=== PATIENT | female | born 1945 | race Caucasian/White ===

== ENCOUNTER 2016-12-07 11:24 | Outpatient (CLI) | payer MEDICARE, BC ==
[~2016-12-07] VITALS: Ht 152.4 cm; Wt 100.9 kg
--- NOTE | ~2016-12-07 | HEMODYNAMI ---
PATIENT:GERALDO RICH MEDICAL RECORD: [id number] : 45 LOCATION:[facility] ADMISSION DATE: 12/07/16 Generatedon:12/07/201614:52 Patient name: GERALDO RICH Patient #: [id number] SSN: D OB: 1945 Date of study: 12/07/2016 Page: Of Hemodynamic Procedure Report Patient Data Patient Demographics Procedure consent was obtained First Name: GERALDO Gender: Female Last Name: HILARIO : 1945 Patient #: [id number] Age: 71 year(s) Race: Unknown Additional ID: [id number] Contact details Address: [address] [place] [address] State: [place] City: [place] Zip code: [address] Past Medical History Allergies Allergen Reaction Date Comments Reported Codeine 12/07/2016 Other allergy 12/07/2016 lorcet Admission Admission Data Admission Date: 12/07/2016 Admission Time: 11:24 Procedure Procedure Types Cath Procedure Diagnostic Procedure C [facility] w/Coronaries Miscellaneous Procedures Moderate Sedation up to 15 minutes Procedure Description Procedure Date Procedure Date: 12/07/2016 Procedure Start Time: 14:37 Procedure End Time: 14:52 Procedure Staff Name Function Zander Fried MD Performing Physician Evangelina Gordon RT Scrub Sav Browne RT Scrub Jay Rodriguez RN Nurse Lavern Masterson RT Monitor Freedom Baca RN Sleeve Presser Operator Procedure Data Cath Procedure Fluoroscopy Diagnostic fluoroscopy Total fluoroscopy Time: 2.1 time: 2.1 min min Diagnostic fluoroscopy Total fluoroscopy dose: 625 dose: 625 mGy mGy Contrast Material Contrast Material Type Amount (ml) Isovue 300 61 Entry Location Entry Primary Successful Side Size Upsize Upsize Entry Closure Vasques ccessful Closure Location (Fr) 1 (Fr) 2 (Fr) Remarks Device Remarks Radial Right 6 Fr Mechanical artery Short Compression Estimated blood loss: 5 ml Diagnostic catheters Device Type Used For End Catheter Placement Diagnostic Terumo 5Fr LV Angiography Nekoma 110cm catheter Diagnostic Terumo 5Fr Left Coronary Nekoma 110cm catheter Angiography Diagnostic Terumo 5Fr Right Coronary Nekoma 110cm catheter Angiography Procedure Complications No complications Procedure Medications Medication Administration Route Dosage 0.9% NaCl I.V. 100 ml/hr Oxygen NC 2 l/min Heparin Flush Bag added to field 2 bags (1000units/500ml NS) Versed 2 mg Fentanyl I.V. 100 mcg Radial Cocktail added to field 1 syringe (Verapomil 2mg/Nitro 400mcg/Heparin 1500units) Fentanyl I.V. 50 mcg Radial Cocktail I.A. 1 syringe (Verapomil 2mg/Nitro 400mcg/Heparin 1500units) Hemodynamics Rest Heart Rate: 84 (bpm) Pressure Samples Time Site Value (mmHg) Purpose Heart Use Rate(bpm) 14:42 LV 133/2,16 EDP 77 14:43 AO 100/56(72) Pullback 80 14:43 LV 122/-7,6 Pullback 80 Gradients Valve Time Site 1 Site 2 Mean SEP/DFP Peak To Heart Use (mmHg) (sec/min) Peak Rate (mmHg) (bpm) Aortic 14:43 LV AO 12 22 22 80 122/-7,6 100/56(72) Calculations Valve P-P Mean Valve Index Valve Source Name Gradient Area Flow (cm2) Aortic 22 12 22 12 Snapshots Pre Cath Intra NCS Post Cath Vital Signs Time Heart Resp SPO2 etCO2 [id number] NIBP (mmHg) Rhythm Pain Sedation Rate (ipm) (%) (mmHg) (mmHg) Status Level (bpm) 14:26:37 70 16 100 0 0 124/76(110) NSR 0 (11) 10(A) , No pain 14:30:53 76 20 100 0 0 120/64(100) NSR 0 (11) 10(A) , No pain 14:35:07 74 19 99 0 0 104/68(86) NSR 0 (11) 10(A) , No pain 14:39:15 68 19 99 0 0 106/66(88) NSR 0 (11) 10(A) , No pain 14:43:27 110 14 96 0 0 95/53(65) NSR 0 (11) 10(A) , No pain 14:47:33 77 14 95 0 0 98/62(88) NSR 0 (11) 10(A) , No pain 14:51:37 76 13 97 0 0 108/66(84) NSR 0 (11) 10(A) , No pain Medications Time Medication Route Dose Verified Delivered Reason Notes Effectiveness by by 14:24:54 0.9% NaCl I.V. 100 Jay Jay Per ml/hr Michael Rodriguez physician RN RN 14:25:14 Oxygen NC 2 l/min Jay Jay Per Michael Rodriguez physician RN RN 14:25:37 Heparin Flush added 2 bags Jay Jay used for Bag to Michael Rodriguez procedure (1000units/500ml field RN RN NS) 14:35:04 Versed 2 mg Jay Jay for sedation Michael Rodriguez RN RN 14:36:11 Fentanyl I.V. 100 mcg Jay Jay for sedation Michael Rodriguez RN RN 14:37:07 Radial Cocktail added 1 Jay Jay for (Verapomil to syringe Michael Rodriguez vasodilation 2mg/Nitro field RN RN 400mcg/Heparin 1500units) 14:39:56 Fentanyl I.V. 50 mcg Jay Jay for sedation Michael Rodriguez RN RN 14:41:59 Radial Cocktail I.A. 1 Jay Zander for (Verapomil syringe Michael Fried MD vasodilation 2mg/Nitro RN 400mcg/Heparin 1500units) Procedure Log Time Note 14:03:46 Freedom Baca RN sent for patient. Start room use. 14:03:47 Time tracking: Regular hours 14:03:52 Plan of Care:Hemodynamics will remain stable., Cardiac rhythm will remain stable., Comfort level will be maintained., Respiratory function will remain adequate., Patient/ family verbilizes understanding of procedure., Procedure tolerated without complication., Recovers from procedure without complications.. 14:16:01 Patient received from Pre/Post Procedure Room to CCL 1 Alert and oriented. Tansferred to table in Supine position. 14:16:02 Warm blankets applied, and dario hugger turned on for patient comfort. 14:16:03 Correct patient and procedure confirmed by team. 14:16:04 Signed procedure consent form obtained from patient. 14:16:05 ECG and BP/O2 sat monitors applied to patient. 14:16:06 Full Disclosure recording started 14:24:32 Vital chart was started 14:24:54 0.9% NaCl 100 ml/hr I.V. was administered by Jay Rodriguez RN; Per physician; 14:25:14 Oxygen 2 l/min NC was administered by Jay Rodriguez RN; Per physician; 14:25:37 Heparin Flush Bag (1000units/500ml NS) 2 bags added to field was administered by Jay Rodriguez RN; used for procedure; 14:31:16 Baseline sample Acquired. 14:31:24 Rhythm: sinus rhythm 14:31:39 H&P Date Dictated: 11/29/2016 Within 30 days and on chart., H&P Addendum completed by physician on day of procedure. (MUST COMPLETE FOR ALL OUTPATIENTS). 14:31:41 Pre-procedure instructions explained to patient. 14:31:41 Pre-op teaching completed and patient verbalized understanding. 14:31:42 Family in waiting room. 14:31:44 Patient NPO since Midnight. 14:31:54 Patient allergic to Codeine 14:32:02 Patient allergic to Other allergylorcet 14:32:05 Is the patient allergic to Iodine/contrast media? No. 14:32:07 Is patient on blood thinner?No 14:32:09 Patient diabetic? Yes. 14:32:11 If diabetic: On Metformin? Yes 14:32:14 If on Metformin: Last Dose? 12/05/2016 14:32:18 Previous problem with sedation/anesthesia? No ? 14:32:19 Snore? Yes 14:32:20 Sleep apnea? No 14:32:21 Deviated septum? No 14:32:21 Opens mouth fully? Yes 14:32:22 Sticks out tongue? Yes 14:33:00 Airway obstruction? Yes Asthma 14:33:03 Dentures? No ? 14:33:06 Pre procedure: right dorsailis pedis pulse 2+ Normal; easily identifiable; not easily obliterated 14:33:09 Modified Antony's test Ulnar < 7 seconds 14:33:12 Patient pain scale 0/10 ?. 14:33:18 IV patent on arrival in left hand with 0.9% NaCl at KVO. 14:33:21 Lab results completed and on chart. 14:33:28 Right Radial & Right Groin area was prepped with chlora-prep and draped in sterile fashion 14:33:29 Alarms reviewed by RGrecia N. 14:33:30 Sharps counted by scrub and verified by R.N. 14:33:33 Use device set Radial Dx 14:33:34 Acist Syringe opened to sterile field. 14:33:34 Medline Cath Pack opened to sterile field. 14:33:35 Bag Decanter opened to sterile field. 14:33:35 Terumo 6Fr Slender Glidesheath opened to sterile field. 14:33:36 St Ric 260cm J .035 wire opened to sterile field. 14:33:36 Acist Hand Control opened to sterile field. 14:33:36 Acist Manifold opened to sterile field. 14:33:38 MBrace Wrist Support opened to sterile field. 14:33:43 Cook 21G 4cm Radial Needle opened to sterile field. 14:34:06 Final Timeout: patient, procedure, and site verified with staff and physician. All members of the team are in agreement. 14:34:09 Right Radial site verified by team. 14:34:12 Physical assessment completed. ASA score P 2 - A patient with mild systemic disease as per Zander Fried MD. 14:34:15 Sedation plan: IV Moderate Sedation Versed, Fentanyl 14:35:04 Versed 2 mg was administered by Jay Rodriguez RN; for sedation; 14:36:11 Fentanyl 100 mcg I.V. was administered by Jay Rodriguez RN; for sedation; 14:37:00 Procedure started. 14:37:02 Zero performed for pressure channel P1 14:37:07 Radial Cocktail (Verapomil 2mg/Nitro 400mcg/Heparin 1500units) 1 syringe added to field was administered by Jay Rodriguez RN; for vasodilation; 14:37:24 Local anesthetic to right radial artery with Lidocaine 2% by Zander Fried MD.INITIAL ACCESS ONLY 14:39:56 Fentanyl 50 mcg I.V. was administered by Jay Rodriguez RN; for sedation; 14:40:40 A 6 Fr Short sheath was inserted into the Right Radial artery 14:41:59 Radial Cocktail (Verapomil 2mg/Nitro 400mcg/Heparin 1500units) 1 syringe I.A. was administered by Zander Fried MD; for vasodilation; 14:42:16 A Diagnostic Terumo 5Fr Nekoma 110cm catheter was advanced over the wire and used for LV Angiography. 14:43:05 LV gram done using LORENZANA 14:43:08 Injector settings: Ml/sec: 5, Volume: 15, 14:43:11 LV hemodynamics recorded. 14:43:25 EF : 55 % 14:44:15 A Diagnostic Terumo 5Fr Nekoma 110cm catheter was advanced over the wire and used for Left Coronary Angiography. 14:46:41 A Diagnostic Terumo 5Fr Nekoma 110cm catheter was advanced over the wire and used for Right Coronary Angiography. 14:47:31 Catheter removed. 14:47:46 Terumo TR Band Standard opened to sterile field. 14:48:00 Sheath removed intact; hemostasis achieved with Mechanical Compression to the Right Radial artery. 14:48:02 Procedure ended.(Physican Out) 14:48:24 Fluoroscopy time 02.10 minutes. 14:48:28 Fluoroscopy dose: 625 mGy 14:48:28 Flurop Dose total: 625 14:48:33 Contrast amount:Isovue 300 61ml. 14:48:35 Sharps counted by scrub and verified by R.N. 14:48:39 TR band inflated with 12cc of air. 14:48:40 Insertion/operative site no bleeding no hematoma. 14:48:48 Post right radial artery:stable, clean and dry 14:48:50 Post Procedure Pulses reassessed and unchanged 14:48:53 Post-procedure physical assessment completed. ASA score P 2 - A patient with mild systemic disease as per Zander Fried MD. 14:48:55 Post procedure rhythm: unchanged. 14:48:58 Estimated blood loss: 5 ml 14:48:59 Post procedure instruction explained to patient.Patient verbalizes understanding. 14:49:00 Patient needs reinforcement of post procedure teaching. 14:49:12 Procedure type changed to Cath procedure, Diagnostic procedure, LHC, LHC w/Coronaries, Miscellaneous Procedures, Moderate Sedation up to 15 minutes 14:49:17 Procedure Complication : No complications 14:49:21 See physician's report for complete and final results. 14:50:04 Procedure and supply charges have been captured, reviewed, submitted and are correct. 14:52:04 Vital chart was stopped 14:52:07 Report given to Pre/Post Procedure Room. 14:52:10 Patient transfered to Pre/Post Procedure Room with Stretcher. 14:52:19 Procedure ended. 14:52:19 Full Disclosure recording stopped 14:52:22 End room use (Document Last) Device Usage Item Name Manufacture Quantity Catalog Hospital Part Current Minimal Lot# / Number Charge Number Stock Stock Serial# Code Acist Acist 1 [id number] 376920 613522 [id number] 20 Syringe [employer] Medline Cardinal 1 [id number] [id number] [id number] 5 Cath Pack Health Bag Microtek 1 [id number] 09962 [id number] 5 [employer] Terumo 6Fr Terumo 1 [id number] 662131 224668 722156 [address] Ric St Ric 1 [id number] 837702 957468 773675 30 260cm J .035 wire Acist Hand Acist 1 04224 234197 738424 928874 5 Control [employer] Inc Acist Acist 1 35245 956478 873821 509400 5 Manifold [employer] MBrace Advanced 1 [id number] 448530 91412 241655 5 Wrist Vascular Support Dynamics Cook 21G Cook Medical 1 [id number] 227482 243951 5 4cm Radial Needle Diagnostic Terumo 1 40-2687 734388 769242 682428 5 Terumo 5Fr Nekoma 110cm catheter Terumo TR Terumo 1 [id number] 172677 260339 363142 40 Band Standard Signature Audit [place] Stage Time Signature Unsigned Intra-Procedure 12/07/2016 Lavern 2:52:32 PM Counts RT(R) Signatures Monitor : Lavern Signature : Counts RT Date : Time : [facility] [address] [facility] [place] [address]
[2016-12-07] MEDS ORDERED: NEURONTIN600 MG PO (12:24)
[2016-12-07] MEDS ORDERED: SYNTHROID50 MCG PO (12:25)
[2016-12-07] MEDS ORDERED: FUROSEMIDE20 MG PO (12:25)
[2016-12-07] MEDS ORDERED: HYDROCHLOROTHIA50 MG PO (12:26)
[2016-12-07] MEDS ORDERED: METHOTREXATE2.5 MG PO (12:27)
[2016-12-07 12:30] VITALS: BP 134/70; Ht 152.4 cm; Wt 100.9 kg
[2016-12-07 12:37] LABS: BASOPHILS 0.4 % (0-2); EOSINOPHILS 6.3 % (0-7); HEMATOCRIT 40.9 % (36.0-48.0); HEMOGLOBIN 13.1 g/dL (12-16); IMMATURE GRANULOCYTES 0.2 % (0-5); LYMPHOCYTES 17.2 % (15-50); MCH 28.5 pg (26.0-34.0); MCV 89.1 fL (80.0-100.0); MEAN PLATELET VOLUME 10.9 fL (7.4-10.4); NEUTROPHILS 66.9 % (40-80); PLATELET COUNT 251 10x3/uL (130-400); RBC 4.59 10x6/uL (4.00-5.40); RDW 14.8 % (11.5-14.5); WBC 8.5 10x3/uL (4.8-10.8)
[2016-12-07 12:47] LABS: ANION GAP 12.4 mmol/L (8-16); CALCIUM 9.1 mg/dL (8.5-10.1); CARBON DIOXIDE 28.5 mmol/L (21.0-32.0); CREATININE - SERUM 0.9 mg/dL (0.6-1.3); POTASSIUM - SERUM 3.9 mmol/L (3.5-5.1)
--- NOTE | 2016-12-07 15:13 | NUR ---
TR BAND INTACT, AT SIDE, DENIES NEEDS AT THIS TIME, VSS
--- NOTE | 2016-12-07 15:45 | NUR ---
TR BAND INTACT, NO CHANGE IN ASSESSMENT, VSS
--- NOTE | 2016-12-07 17:24 | NUR ---
IV D'C WITH CATH TIP INTACT, TR BAND OFF WITH BANDAID APPLIED AND BRACE REAPPLIED. NO HEMATOMA OR BLEEDING AT SITE. VSS. WRITTEN AND VERBAL D'C INSTRUCTIONS GIVEN TO PT AND -VERBAL UNDERSTANDING NOTED.
== END 2016-12-07 17:20 | disposition home or self-care (01) ==
LOC: D.CATH 11:24
PROVIDERS: Internal Medicine Cardiovascular Disease
DX: R94.39 Abnormal result of other cardiovascular function study (principal); Z01.812 Encounter for preprocedural laboratory examination